=== PATIENT | female | born 1945 | race Caucasian/White ===

== ENCOUNTER → 2018-07-12 | Outpatient (CLI) | payer OTHER | END | disposition home or self-care (01) | LOC: PCVCCLINIC 16:37 | PROVIDERS: ATTEND Internal Medicine | DX: E11.9 Type 2 diabetes mellitus without complications (principal); E78.5 Hyperlipidemia, unspecified; R06.02 Shortness of breath; I10 Essential (primary) hypertension; F17.210 Nicotine dependence, cigarettes, uncomplicated; Z88.0 Allergy status to penicillin | CPT/HCPCS: 93005; G0463 ==

== ENCOUNTER → 2018-08-16 | Outpatient (CLI) | payer OTHER ==
[~2018-08-16] MED LIST: PERFLUTREN PROTEIN-A MICROSPHR 0.22 MG/ML 3 ML VIAL. IV ONE
--- NOTE | 2018-08-16 17:58 | PCVCIMAG ---
APPROVED REPORT Study performed: 08/16/2018 12:52:09 EXAM: Comprehensive 2D, Doppler, and color-flow Echocardiogram Patient Location: Echo lab Status: routine BSA: 2.19 HR: 83 bpmBP: 160/84 mmHg Rhythm: NSR Other Information Study Quality: Technically Difficult Technically limited study due to body habitus. Risk Factors: Cardiac Risk Factors: HTN, Hyperlipidemia, DM Indications Dyspnea Echo Enhancing Agent Indication: Endocardial border delineation Agent(s) / Amount(s) Used: Dotspin cc 2D Dimensions IVSd: 14.55 (7-11mm)LVOT Diam: 21.00 (18-24mm) LVDd: 51.62 mm PWd: 15.93 (7-11mm)Ascending Ao: 29.33 (22-36mm) LVDs: 39.34 (25-40mm) Left Atrium: 44.26 (27-40mm) Aortic Root: 24.68 mm LV Single Plane 4CH: 60.79 % Volumes Left Atrial Volume (Systole) Single Plane 4CH: 46.70 mLSingle Plane 2CH: 56.83 mL LA ESV Index: 26.00 mL/m2 Aortic Valve AoV Peak Srinivasa.: 1.74 m/s AO Peak Gr.: 12.11 mmHgLVOT Max P.77 mmHg LVOT Max V: 0.97 m/s MEERA Vmax: 1.88 cm2 Tricuspid Valve TR Peak Srinivasa.: 2.14 m/sRAP Estimate: 10.00 mmHg TR Peak Gr.: 18.32 mmHg PA Pressure: 28.00 mmHg Left Ventricle The left ventricle is normal size. There is normal LV segmental wall motion. Moderate concentric left ventricular hypertrophy. Left ventricular systolic function is normal. The left ventricular ejection fraction is within the normal range. LVEF is 60-65%. This study is not technically sufficient to allow evaluation of the LV diastolic function. Right Ventricle Right ventricle is dilated. Right ventricle is hypokinetic. Atria The left atrium size is normal. Right atrium is dilated. Aortic Valve The aortic valve is normal in structure. No aortic regurgitation is present. There is no aortic valvular stenosis. Mitral Valve The mitral valve is normal in structure. There is no mitral valve regurgitation noted. No evidence of mitral valve stenosis. Tricuspid Valve The tricuspid valve is normal in structure. Trace tricuspid regurgitation. Pulmonary artery pressure is 28 mmHg. Pulmonic Valve The pulmonary valve is normal in structure. There is no pulmonic valvular regurgitation. Great Vessels The aortic root is normal in size. IVC is normal in size and collapses >50% with inspiration. Pericardium There is no pericardial effusion. <Conclusion> The left ventricle is normal size. LVEF is 60-65%. Right ventricle is dilated. Right ventricle is hypokinetic. Right atrium is dilated. The aortic valve is normal in structure. The mitral valve is normal in structure. There is no mitral valve regurgitation noted. The tricuspid valve is normal in structure. Trace tricuspid regurgitation. Pulmonary artery pressure is 28 mmHg. The pulmonary valve is normal in structure. There is no pericardial effusion.
== END | disposition home or self-care (01) ==
LOC: PCVCIMAG 12:46
PROVIDERS: ATTEND Internal Medicine
DX: I10 Essential (primary) hypertension (principal); E11.9 Type 2 diabetes mellitus without complications; R06.09 Other forms of dyspnea; E78.5 Hyperlipidemia, unspecified
CPT/HCPCS: C8929; Q9956

== ENCOUNTER → 2018-09-24 | Outpatient (CLI) | payer OTHER | END | disposition home or self-care (01) | LOC: PCVCCLINIC 16:38 | PROVIDERS: ATTEND Internal Medicine | DX: Z01.812 Encounter for preprocedural laboratory examination (principal); R94.39 Abnormal result of other cardiovascular function study; I10 Essential (primary) hypertension; E11.40 Type 2 diabetes mellitus with diabetic neuropathy, unspecified; Z79.4 Long term (current) use of insulin; Z88.0 Allergy status to penicillin | CPT/HCPCS: 36415 ==